=== PATIENT | male | born 1985 | race African-American/Black ===

== ENCOUNTER → 2016-11-23 | Emergency (ER) | payer MEDICAID ==
[~2016-11-23] VITALS: Ht 180.3 cm; Wt 124.7 kg
[~2016-11-23] MED LIST: NAPROSYN500 M1 ORAL; NKM
--- NOTE | 2016-11-23 05:28 | Emergency Room Report ---
History of Present Illness General Chief Complaint: Pain Source: Patient Present Illness HPI Is a 31-year-old male with no past history. He presents with chief complaint of sore throat and tongue swelling. Onset for a week. Trying saltwater without any relief. Also coughing congestion. No fever or chills. Pain is 10 out of 10. Allergies: Uncoded Allergies: POLLEN (Allergy, Mild, 11/23/16) Patient History Past Medical History: none Past Surgical History: none Pertinent Family History: none Social History: Denies: smoking Immunizations: other Reviewed Nursing Documentation: PMH: Agreed, PSxH: Agreed Nursing Documentation-PMH Hx Asthma: Yes Review of Systems Eye: Denies: blurred vision, eye pain ENT: Reports: nose congestion, throat pain, Denies: ear pain, throat swelling Respiratory: Denies: cough, shortness of breath Cardiovascular: Denies: chest pain, palpitations Gastrointestinal: Denies: abdominal pain, diarrhea, nausea, vomiting Musculoskeletal: Denies: back pain, joint pain Skin: Denies: rash Neurological: Denies: headache, numbness Endocrine: Denies: increased thirst, increased urine Hematologic/Lymphatic: Denies: easy bruising All Other Systems: negative except mentioned in HPI Physical Exam Vital Signs Date Time Temp Pulse Resp B/P Pulse Ox O2 Delivery O2 Flow Rate FiO2 11/23/16 05:11 98.2 92 16 142/89 97 Room Air vitals normal Sp02 EP Interpretation: reviewed, normal General Appearance: well appearing, no apparent distress, alert Head: normocephalic, atraumatic Eyes: bilateral eye EOMI, bilateral eye PERRL ENT: hearing grossly normal, normal pharynx, other - Geographic tongue Neck: full range of motion, supple, no meningismus Respiratory: chest non-tender, lungs clear, normal breath sounds Cardiovascular #1: regular rate, rhythm, no murmur Gastrointestinal: normal bowel sounds, non tender, no mass, no organomegaly, no bruit, non-distended Musculoskeletal: back normal, gait/station normal, normal range of motion Psychiatric: mood/affect normal Skin: warm/dry Medical Decision Making Diagnostic Impression: Primary Impression: Viral pharyngitis ER Course Patient with a viral illness. I see no tongue edema. No evidence of peritonsillar abscess or retropharyngeal abscess. He is not on any medication. No JOSÉ MIGUEL inhibitor. No antipsychotic medication. Last Vital Signs Date Time Temp Pulse Resp B/P Pulse Ox O2 Delivery O2 Flow Rate FiO2 11/23/16 05:11 98.2 92 16 142/89 97 Room Air Status: improved Disposition: HOME, SELF-CARE Condition: Stable Scripts Naproxen* (NAPROSYN*) 500 Mg Tablet 500 MG ORAL TWICE A DAY, #20 TAB Prov: TRISH PAINTER M.D. 11/23/16 Additional Instructions: Followup with your DrSharad in 7 days. Return if symptom worsen. TRISH PAINTER M.D. Nov 23, 2016 05:27
[2016-11-23 05:34] VITALS: BP 137/91
[2016-11-23 05:35] VITALS: BP 137/91
== END | disposition home or self-care (01) ==
LOC: EMR 05:20
DX: J02.9 Acute pharyngitis, unspecified (principal); Z91.048 Other nonmedicinal substance allergy status; J45.909 Unspecified asthma, uncomplicated; R05 Cough
CPT/HCPCS: 99283

== ENCOUNTER 2017-11-20 00:24 | Emergency (ER) | payer MEDICAID ==
[~2017-11-20] VITALS: Ht 180.3 cm; Wt 124.7 kg
[2017-11-20 00:45] VITALS: BP 124/72
--- NOTE | 2017-11-20 01:12 | Emergency Room Report ---
History of Present Illness General Chief Complaint: General Complaint Source: Patient Present Illness HPI Is a 32-year-old male with no past medical history. He presents with multiple complaints. First complaint is that he has abnormal tongue. He doesn't know when that occurred. He has some abdomen mildly on it. He doesn't know how long it has been going on. Second issue is that his has been shaking. It occurred this morning. He hasn't been shaking now. Third complaint is that he has chest pain ongoing for 2 weeks. He has no radiation. Has been constant. Allergies: Uncoded Allergies: POLLEN (Allergy, Mild, 11/23/16) Patient History Past Medical History: see triage record, old chart reviewed Past Surgical History: none Pertinent Family History: none Social History: Denies: smoking Immunizations: other Reviewed Nursing Documentation: PMH: Agreed, PSxH: Agreed Nursing Documentation-PMH Past Medical History: No Stated History Hx Asthma: Yes Review of Systems Eye: Denies: eye pain, blurred vision ENT: Denies: ear pain, nose congestion, throat swelling Respiratory: Denies: cough, shortness of breath Cardiovascular: Reports: chest pain, Denies: palpitations Gastrointestinal: Denies: abdominal pain, diarrhea, nausea, vomiting Musculoskeletal: Denies: back pain, joint pain Skin: Denies: rash Neurological: Denies: headache, numbness Endocrine: Denies: increased thirst, increased urine Hematologic/Lymphatic: Denies: easy bruising All Other Systems: negative except mentioned in HPI Physical Exam Vital Signs Date Time Temp Pulse Resp B/P (MAP) Pulse Ox O2 Delivery O2 Flow Rate FiO2 11/20/17 00:36 98.2 72 16 124/72 98 Room Air 98.2 vitals normal Sp02 EP Interpretation: reviewed, normal General Appearance: well appearing, no apparent distress, alert Head: normocephalic, atraumatic Eyes: bilateral eye PERRL, bilateral eye EOMI ENT: hearing grossly normal, normal pharynx, other - geographic tongue Neck: full range of motion, supple, no meningismus Respiratory: chest non-tender, lungs clear, normal breath sounds Cardiovascular #1: regular rate, rhythm, no murmur Gastrointestinal: normal bowel sounds, non tender, no mass, no organomegaly, no bruit, non-distended Musculoskeletal: back normal, gait/station normal, normal range of motion Psychiatric: mood/affect normal Skin: warm/dry Medical Decision Making Diagnostic Impression: Primary Impression: Geographic tongue Additional Impressions: Tremor of left hand Atypical chest pain ER Course Patient with vague symptoms. I see no evidence of any infection going on. He has no tremors here. Chest pain is atypical in nature. No evidence of ACS, PE , dissection. This may be somatizations of some psych issue. Explained to him his tongue his geographical in nature. Last Vital Signs Date Time Temp Pulse Resp B/P (MAP) Pulse Ox O2 Delivery O2 Flow Rate FiO2 11/20/17 00:36 98.2 72 16 124/72 98 Room Air 98.2 Status: unchanged Disposition: HOME, SELF-CARE Condition: Stable Additional Instructions: Follow-up your Dr. in 7 days. Return if symptom worsen. TRISH PAINTER M.D. Nov 20, 2017 01:12
[2017-11-20 01:15] VITALS: BP 124/72
== END 2017-11-20 01:15 | disposition home or self-care (01) ==
LOC: EMR 01:00
DX: R07.9 Chest pain, unspecified (principal); K14.1 Geographic tongue; R25.1 Tremor, unspecified; Z91.09 Other allergy status, other than to drugs and biological substances
CPT/HCPCS: 99283